=== PATIENT | male | born 1975 | race Caucasian/White ===

== ENCOUNTER 2022-08-22 12:06 | Outpatient (CLI) | payer OTHER ==
[2022-08-22] MEDS ORDERED: ECOTRIN325 M1 PO (13:25)
== END 2022-08-22 12:10 | disposition home or self-care (01) ==
LOC: NUCLEAR 12:06
PROVIDERS: ATTEND Physical Medicine & Rehabilitation
DX: I82.402 Acute embolism and thrombosis of unspecified deep veins of left lower extremity (principal)

== ENCOUNTER 2022-08-22 13:07 | Emergency (ER) | payer OTHER ==
[~2022-08-22] VITALS: Ht 180.3 cm; Wt 86.2 kg
[2022-08-22] MEDS ORDERED: ECOTRIN325 M1 PO (13:25)
== END 2022-08-22 16:18 | disposition home or self-care (01) ==
LOC: ER 13:07
DX: I82.812 Embolism and thrombosis of superficial veins of left lower extremity (principal); M79.605 Pain in left leg